=== PATIENT | male | born 1980 | race Caucasian/White ===

== ENCOUNTER 2022-06-20 04:15 | Day surgery (SDC) | payer OTHER ==
[2022-06-18 15:06] VITALS: BMI 39.1
[~2022-06-20 04:15] MED LIST: BUPIVACAINE HCL/PF 0.5% (5MG/ML) 10 ML VIAL IJ ONE
[2022-06-20] MEDS ORDERED: PROPOFOL 20 ML ONE ×2 (07:42→09:15)
[2022-06-20] MEDS ORDERED: LIDOCAINE HCL/PF 2% SDV 5ML VIAL ONE (08:02)
[2022-06-20] MEDS ORDERED: ONDANSETRON 4 MG/2 ML VIAL ONE (08:02)
[2022-06-20] MEDS ORDERED: DEXAMETHASONE SOD PHOSPHATE 4 MG/1 ML VIAL ONE (08:02)
[2022-06-20] MEDS ORDERED: ceFAZolin SODIUM 1 GM VIAL ONE (08:21)
[2022-06-20] MEDS ORDERED: BUPIVACAINE HCL/PF 0.5% (5MG/ML) 10 ML VIAL IJ ONE ×2 (08:31)
[2022-06-20] MEDS ORDERED: KETOROLAC TROMETHAMINE 30 MG/1 ML VIAL ONE (09:37)
[2022-06-20] MEDS ORDERED: oxyCODONE HCL 5 MG TABLET PO PRN ×2 (09:54→09:57)
[2022-06-20] MEDS ORDERED: PROMETHAZINE HCL 25 MG/1 ML VIAL IVPB PRN (09:57)
[2022-06-20] MEDS ORDERED: ONDANSETRON 4 MG/2 ML VIAL IVPUSH PRN (09:57)
[2022-06-20] MEDS ORDERED: ACETAMINOPHEN 1000 MG/100 ML BAG IVPB PRN (09:57)
[2022-06-20] MEDS ORDERED: LACTATED RINGERS SOLUTION 1,000 ML IV SCH (10:00)
[2022-06-20 10:43] VITALS: RESP 18
[2022-06-20] MEDS ORDERED: oxyCODONE HCL 5 MG TABLET ONE (11:40)
[2022-06-20 13:14] VITALS: BP 112/67; PULSE 72; TEMP 97.3
== END 2022-06-20 12:30 | disposition home or self-care (01) ==
LOC: JASU-SURG 04:15
PROVIDERS: ATTEND Surgery
PROC: 06LP0ZZ Occlusion of Right Saphenous Vein, Open Approach (ICD-10-PCS; 2022-06-20)
PROC: 06DY0ZZ Extraction of Lower Vein, Open Approach (ICD-10-PCS; principal; 2022-06-20 08:00)
DX: I83.91 Asymptomatic varicose veins of right lower extremity (principal)
CPT/HCPCS: 88304-TC; 94760